=== PATIENT | female | born 1995 | race Caucasian/White ===

== ENCOUNTER 2021-11-11 18:48 | Emergency (ER) | payer MEDICAID ==
[~2021-11-11] VITALS: Ht 175.3 cm; Wt 74.8 kg
--- NOTE | 2021-11-11 19:00 | NUR ---
PT BIBRA 59 FROM HOME C/O BODYPAIN, WEAKNESS, & SORE THROAT PER EMS BEEN TO [facility] LAST NIGHT. PT A/OX4. PT TOLERATING R/A WELL WITH NO SOB. CONNECTED PT TO POX AND MONITOR.
[2021-11-11] MEDS ORDERED: IV NS 0.9% 1,000 ML BAG IV ONE (19:30)
--- NOTE | 2021-11-11 19:50 | NUR ---
R HAND #20G S/L; PATENT AND INTACT. ENFORCEMENT MANAGER AT PT'S BEDSIDE
--- NOTE | 2021-11-11 19:55 | NUR ---
OFFERED PT URINE CUP; PT NOT ABLE TO URINATE AT THIS TIME. WILL F/U LATER
[2021-11-11 20:15] LABS: MONOCYTES # (AUTO) 0.5 K/uL (0.1-1.30); NEUTROPHILS # (AUTO) 11.9 K/uL (1.8-8.9); WHITE BLOOD COUNT (AUTO) 13.5 K/uL (4.3-11.0)
--- NOTE | 2021-11-11 20:17 | NUR ---
STUDIO CONTROL OPERATOR AT PT'S BEDSIDE
[2021-11-11 20:21] LABS: BASOPHILS % (AUTO) 0.2 % (0.0-2.0); EOSINOPHILS % (AUTO) 0.2 % (0.0-6.0); HEMATOCRIT 37 % (33-45); HEMOGLOBIN 12.5 g/dL (11.5-14.8); LYMPHOCYTES % (AUTO) 7.6 % (20.0-44.0); MEAN CORPUSCULAR HGB CONC 34 g/dl (31.0-36.0); MEAN CORPUSCULAR VOLUME 91 fL (82-100); MONOCYTES % (AUTO) 4.1 % (2.0-12.0); NEUTROPHILS % (AUTO) 87.9 % (43.0-81.0); RED BLOOD CELL COUNT(AUTO) 4.05 MIL/uL (4.0-5.2)
[2021-11-11 20:23] LABS: CALCIUM, SERUM 8.7 mg/dL (8.5-10.1); CARBON DIOXIDE 28 mmol/L (21-32); CHLORIDE 102 mmol/L (98-107); CREATININE 0.7 mg/dL (0.6-1.3); GLUCOSE 113 mg/dL (74-106); POTASSIUM 3.5 mmol/L (3.5-5.1); SODIUM SERUM 138 mmol/L (136-145); UREA NITROGEN, BLOOD 6 mg/dL (7-18)
[2021-11-11 20:29] LABS: ALANINE AMINOTRANSFERASE 18 U/L (12-78); ALBUMIN 3.8 g/dL (3.4-5.0); ALKALINE PHOSPHATASE 63 U/L (46-116); ASPARTATE AMINOTRANSFERASE 16 U/L (15-37); BILIRUBIN,DIRECT 0.2 mg/dL (0.0-0.2); BILIRUBIN,TOTAL 0.6 mg/dL (0.2-1.0); TOTAL PROTEIN, SERUM 7.7 g/dL (6.4-8.2)
[2021-11-11 20:37] LABS: PLATELET COUNT (AUTO) 381 K/uL (150-450)
--- NOTE | 2021-11-11 20:56 | NUR ---
UPDATED GIANCARLO (MOTHER) [phone]
--- NOTE | 2021-11-11 21:35 | NUR ---
Mohan isabel in [facility] - 11/11/21 at 2147 by LIDA URINE COLLECTED AND SENT TO LAB
--- NOTE | 2021-11-11 21:36 | NUR ---
URINE COLLECTED AND SENT TO LAB.
[2021-11-11] MEDS ORDERED: IBUPROFEN 600 MG TABLET ONE (21:50)
--- NOTE | 2021-11-11 21:53 | NUR ---
PT C/O 03/07 BODY PAIN & THROAT PAIN; ADMINISTERED MOTRIN 600MG ORDERED. VSS
[2021-11-11] MEDS ORDERED: IBUPROFEN 600 MG TABLET PO ONE (22:00)
--- NOTE | 2021-11-11 23:24 | NUR ---
SHAKIR NICOLE (MOTHER) [phone] PLEASE CALL FOR DISCHARGE RESEARCH AND DEVELOPMENT SPECIALIST
--- NOTE | 2021-11-11 23:57 | NUR ---
IV removed. Catheter intact and site benign. Pressure and 4x4 applied to site. No bleeding noted. Patient discharged to home in stable condition. Written and verbal after care instructions given. Patient verbalizes understanding of instruction. PT DC VIA W/C
[2021-11-11 23:58] VITALS: BP 121/76
== END 2021-11-11 23:59 | disposition home or self-care (01) ==
LOC: ER 18:52
DX: R55 Syncope and collapse (principal); M79.10 Myalgia, unspecified site; R94.31 Abnormal electrocardiogram [ECG] [EKG]; Z60.2 Problems related to living alone
CPT/HCPCS: 36415; 71045; 80048; 80076; 82550; 84484 ×2; 84703; 85025; 93005; 96360; 99285; J7030